=== PATIENT | male | born 1980 | race Caucasian/White ===

== ENCOUNTER 2018-03-16 11:08 | Emergency (ER) | payer BC ==
[2018-03-16 11:23] VITALS: BP 120/100
--- NOTE | 2018-03-16 12:38 | UC ---
Respiratory Complaint HPI - HPI Summary HPI Summary: 37 year old male 1/2 Pack per week here for congestion for one week. Patient reports his symptoms started with runny nose and congestion last week but in the past 2-3 days, reports productive cough. This morning he noticed blood tinged sputum prompting him to come to the . Denies any unintentional weight loss, out of the country travel or history of incarceration, so no TB risk factor. He is an active smoker. No other complaints. - History of Current Complaint Chief Complaint: UCRespiratory Stated Complaint: COUGHING UP BLOOD Time Seen by Provider: 03/16/18 12:05 Onset/Duration: Gradual Onset Pain Intensity: 1 Character: Cough: Productive Associated Signs And Symptoms: Positive: Hemoptysis, Nasal Congestion. Negative : Calf Pain, Calf Swelling - Allergies/Home Medications Allergies/Adverse Reactions: Allergies Allergy/AdvReac Type Severity Reaction Status Date / Time No Known Allergies Allergy Verified 03/16/18 11:23 PMH/Surg Hx/FS Hx/Imm Hx Previously Healthy: Yes - Surgical History Surgical History: Yes Surgery Procedure, Year, and Place: SHOULDER SURGERY RIGHT AND LEFT[place] – [place] - Family History Known Family History: Positive: Unknown - Social History Alcohol Use: Rare Substance Use Type: None Smoking Status (MU): Former Smoker Amount Used/How Often: < 1/2 PPD X 10 YEARS Have You Smoked in the Last Year: Yes When Did the Patient Quit Smoking/Using Tobacco: 07/2014 Review of Systems Constitutional: Negative Skin: Negative Eyes: Negative ENT: Negative Respiratory: Cough Cardiovascular: Negative Gastrointestinal: Negative Genitourinary: Negative Motor: Negative Neurovascular: Negative Musculoskeletal: Negative Neurological: Negative Psychological: Negative All Other Systems Reviewed And Are Negative: Yes Physical Exam Triage Information Reviewed: Yes Vital Signs: Initial Vital Signs Temp 36.9 C 03/16/18 11:21 Pulse 85 03/16/18 11:21 Resp 16 03/16/18 11:21 BP 120/100 03/16/18 11:21 Pulse Ox 100 03/16/18 11:21 Vital Signs Reviewed: Yes ENT Exam: Normal Respiratory Exam: Normal Cardiovascular Exam: Normal Abdominal Exam: Normal Musculoskeletal Exam: Normal Neurological Exam: Normal Skin Exam: Normal UC Diagnostic Evaluation - Laboratory O2 Sat by Pulse Oximetry: 100 - Radiology Xray Interpretation: No Acute Changes Radiology Interpretation Completed By: Radiologist Respiratory Course/Dx - Course Course Of Treatment: Bronchitis. Counselled patient about smokign cessastion - Differential Dx/Diagnosis Differential Diagnosis/HQI/PQRI: Bronchitis, Laryngitis, Lower Resp Infection Provider Diagnoses: Bronchitis Discharge - Sign-Out/Discharge Documenting (check all that apply): Discharge/Admit/Transfer - Discharge Plan Condition: Good Disposition: HOME Prescriptions: Azithromyxin PAWEL (NF) [Z-Pawel (Zithromax) 250 mg tabs #6] 2 tab PO .TODAY, THEN 1 DAILY #6 tab Patient Education Materials: Acute Bronchitis (ED), Hemoptysis (ED) Referrals: Jakub Jimenez MD [Primary Care Provider] - Additional Instructions: Stop smoking or seek help for smoking cessation programs - Billing Disposition and Condition Condition: GOOD Disposition: Home
--- NOTE | 2018-03-16 12:45 | RAD ---
INDICATION: "Coughing up blood" COMPARISON: Chest x-ray January 22, 2016 TECHNIQUE: PA and lateral views of the chest were obtained. FINDINGS: The heart and mediastinum are normal in size and contour. The lungs are grossly clear. There is no evidence of large pleural effusion. Visualized bones are normal for the patient's age. There is no radiographic evidence of free air beneath the diaphragm IMPRESSION: No radiographic evidence of acute cardiopulmonary disease.
== END 2018-03-16 12:56 | disposition home or self-care (01) ==
LOC: UCEAST 11:08
DX: J40 Bronchitis, not specified as acute or chronic (principal); R04.2 Hemoptysis; R09.81 Nasal congestion; Z87.891 Personal history of nicotine dependence
CPT/HCPCS: 71046; 99212; G0463

== ENCOUNTER 2019-10-12 10:01 | Emergency (ER) | payer SELFPAY ==
[2019-10-12 10:14] VITALS: BP 139/96
[2019-10-12] MEDS ORDERED: Naproxen TAB* 250 MG PO ONE (10:21)
--- NOTE | 2019-10-12 10:32 | UC ---
Knee Pain HPI - HPI Summary HPI Summary: 39-year-old male presents with complaints of right knee pain. States about 1 hour prior to arrival he was at work and slipped on a wet floor causing a twisting injury to his right knee. Reports he did not fall to the ground. Complains of pain to the medial and posterior knee. Worsens with weightbearing and flexion. Improves with rest. He was able to bear weight immediately after the injury as well as in the clinic. Denies any bruising, swelling, numbness or tingling. - History of Current Complaint Chief Complaint: UCLowerExtremity Stated Complaint: KNEE INJURY Time Seen by Provider: 10/12/19 10:15 Hx Obtained From: Patient Pain Intensity: 6 - Allergies/Home Medications Allergies/Adverse Reactions: Allergies Allergy/AdvReac Type Severity Reaction Status Date / Time No Known Allergies Allergy Verified 10/12/19 10:12 Home Medications: Home Medications Cyclobenzaprine TAB* [Flexeril 10 MG TAB*] 1 tab PO TID PRN 10/12/19 [History Confirmed 10/12/19] PMH/Surg Hx/FS Hx/Imm Hx Previously Healthy: Yes - Denies significant PMH - Surgical History Surgical History: Yes Surgery Procedure, Year, and Place: SHOULDER SURGERY RIGHT AND LEFT-[facility] - Family History Known Family History: Positive: Unknown - Social History Occupation: Employed Full-time Lives: With Family Alcohol Use: None Substance Use Type: None Smoking Status (MU): Light Every Day Tobacco Smoker Amount Used/How Often: 3 cig/day Have You Smoked in the Last Year: Yes When Did the Patient Quit Smoking/Using Tobacco: 07/2014 Household Exposure Type: Cigarettes Review of Systems All Other Systems Reviewed And Are Negative: Yes Constitutional: Positive: Negative Skin: Negative: Bruising Respiratory: Positive: Negative Cardiovascular: Positive: Negative Gastrointestinal: Positive: Negative Genitourinary: Positive: Negative Motor: Negative: Weakness Neurovascular: Negative: Decreased Sensation Musculoskeletal: Positive: Other: - See HPI Neurological: Positive: Negative Is Patient Immunocompromised?: No Physical Exam - Summary Physical Exam Summary: GENERAL APPEARANCE: Well developed, well nourished, alert and cooperative, and appears to be in no acute distress. CARDIAC: Normal S1 and S2. No S3, S4 or murmurs. Rhythm is regular. There is no peripheral edema, cyanosis or pallor. Extremities are warm and well perfused. Capillary refill is less than 2 seconds. Peripheral pulses intact. LUNGS: Clear to auscultation without rales, rhonchi, wheezing or diminished breath sounds. ABDOMEN: Positive bowel sounds. Soft, nondistended, nontender. No guarding or rebound. No masses or hepatosplenomegally. MUSKULOSKELETAL: Normal muscular development. Normal gait. EXTREMITIES: Tenderness along medial joint line of the right knee without gross deformity, ecchymosis, or edema. Full ROM although pain with flexion. No laxity. Circulation and sensation intact. SKIN: Skin normal color, texture and turgor with no lesions or eruptions. Triage Information Reviewed: Yes Vital Signs: Initial Vital Signs Temp 96.9 F 10/12/19 10:09 Pulse 74 10/12/19 10:09 Resp 18 10/12/19 10:09 BP 139/96 10/12/19 10:09 Pulse Ox 97 10/12/19 10:09 Vital Signs Reviewed: Yes Diagnostics - Radiology No standard instances Radiology Interpretation Completed By: Radiologist Summary of Radiographic Findings: Order Information: KNEE RIGHT 4+ VWS. Indication: RIGHT knee pain anterior and posterior post fall today. COMPARISON: No relevant prior exams available on the [facility] PACS for comparison. Technique: RIGHT knee: AP, tunnel, lateral, sunrise views. Report: Negative for joint effusion, fracture, malalignment, or joint space loss. Unremarkable soft tissue contours. IMPRESSION: #. Negative radiographic exam of the RIGHT knee. Knee Pain Course/Dx - Course Course Of Treatment: 39-year-old male presents with complaints of right knee pain. States about 1 hour prior to arrival he was at work and slipped on a wet floor causing a twisting injury to his right knee. Reports he did not fall to the ground. Complains of pain to the medial and posterior knee. Worsens with weightbearing and flexion. Improves with rest. He was able to bear weight immediately after the injury as well as in the clinic. Denies any bruising, swelling, numbness or tingling. Afebrile. Vital signs stable. On exam there was tenderness along medial joint line of the right knee without gross deformity, ecchymosis, or edema. Full ROM of the knee although pain with flexion. No laxity. Circulation and sensation intact. X-ray was negative for acute osseous injury. Recommending conservative treatment for a right knee sprain including over-the- counter analgesics and RICE. He is to follow-up with orthopedic surgery in 7 days if symptoms are not improving. Anticipatory guidance and warning symptoms were reviewed with the patient. Verbalizes understanding and agrees with plan of care. - Differential Dx/Diagnosis Differential Diagnosis/HQI/PQRI: Dislocation, Fracture (Closed), Internal Derangement Of Knee, Sprain Provider Diagnosis: Right knee sprain Discharge ED - Sign-Out/Discharge Documenting (check all that apply): Patient Departure All imaging exams completed and their final reports reviewed: Yes - Discharge Plan Condition: Stable Disposition: HOME Patient Education Materials: Knee Sprain (ED) Forms: *Work Release Referrals: Jakub Jimenez MD [Primary Care Provider] - Wilmer Tamayo MD [Medical Doctor] - Additional Instructions: The x-ray performed in the clinic today showed no evidence of a fracture. Rest the knee as much as possible. You may continue to walk and bear weight as tolerated. Use an ALEXIA wrap or compression sleeve to help manage any swelling. Apply ice to the affected area for 15-20 minutes at least 4 times a day to help with the pain and swelling. Elevate the leg to help reduce swelling. Take acetaminophen (Tylenol) or ibuprofen (Advil, Motrin) according to directions as needed for pain. Follow up with orthopedic surgery in 7 days if symptoms do not improve. Call for appointment. Seek immediate medical attention if you have severe pain not managed with pain medication, you are unable to walk or bear any weight, develop numbness or tingling in the leg, foot, or toes, or have any worsening of symptoms. - Billing Disposition and Condition Condition: STABLE Disposition: Home
== END 2019-10-12 11:22 | disposition home or self-care (01) ==
LOC: UCEAST 10:01
DX: S83.91XA Sprain of unspecified site of right knee, initial encounter (principal); F17.210 Nicotine dependence, cigarettes, uncomplicated; X50.1XXA Overexertion from prolonged static or awkward postures, initial encounter; Y92.9 Unspecified place or not applicable; Y99.0 Civilian activity done for income or pay
CPT/HCPCS: 99211; A9270-GY; G0463